=== PATIENT | male | born 1970 | race Caucasian/White ===

== ENCOUNTER 2020-07-01 18:19 | Emergency (ER) | payer MEDICARE, OTHER ==
[2020-07-01 22:16] LABS: HEMOGLOBIN 13.6 gm/dl (14.0-17.5); RED BLOOD COUNT 4.47 M/UL (4.20-5.50); WHITE BLOOD COUNT 13.8 K/UL (4.5-11.0)
[2020-07-01 22:37] LABS: BUN/CREATININE RATIO 19 (0-10)
[2020-07-02] MEDS ORDERED: JOCK ITCH15 GM TP (05:02)
[2020-07-02] MEDS ORDERED: MAGNESIUM400 M2 PO (05:02)
[2020-07-02] MEDS ORDERED: K-DUR TAB 20 M20 MEQ PO (05:02)
[2020-08-07] MEDS ORDERED: LYRICA100 MG PO (07:58)
[2020-08-07] MEDS ORDERED: LINZESS72 MCG PO (07:59)
[2020-08-07] MEDS ORDERED: BUMETANIDE2 MG PO (07:59)
[2020-08-07] MEDS ORDERED: ATENOLOL100 MG PO (07:59)
[2020-08-07] MEDS ORDERED: CRESTOR 10 MG T10 MG PO (08:00)
[2020-08-07] MEDS ORDERED: METFORMIN HCL1000 MG PO (08:02)
[2020-08-07] MEDS ORDERED: VITAMIN D PO (08:02)
[2020-08-07] MEDS ORDERED: PROZAC40 MG PO (08:03)
[2020-08-07] MEDS ORDERED: ALDACTONE25 MG PO (08:03)
[2020-08-07] MEDS ORDERED: LIDOCAINE1 EAC1 TP (08:04)
== END 2020-07-02 05:18 | disposition home or self-care (01) ==
LOC: ER1 18:19
PROVIDERS: Emergency Medicine; Physician Assistant
DX: N48.1 Balanitis (principal); Z20.822 Contact with and (suspected) exposure to COVID-19; E11.9 Type 2 diabetes mellitus without complications; I10 Essential (primary) hypertension; E87.6 Hypokalemia; E83.41 Hypermagnesemia; F17.210 Nicotine dependence, cigarettes, uncomplicated; Z79.84 Long term (current) use of oral hypoglycemic drugs
CPT/HCPCS: 0240U; 71045; 80053; 80307; 81001; 83605; 83735; 85025; 85610; 85652; 85730; 86140; 87040; 87086; 96365; 96375; 99284; J1885; J2405; J3475; J3480; Q9967

== ENCOUNTER → 2020-07-08 | Outpatient (CLI) | payer MEDICARE, OTHER ==
[~2020-07-08] MED LIST: ALDACTONE25 MG PO; ATENOLOL100 MG PO; BUMETANIDE2 MG PO; CRESTOR 10 MG T10 MG PO; JOCK ITCH15 GM TP; K-DUR TAB 20 M20 MEQ PO; LIDOCAINE1 EAC1 TP; LINZESS72 MCG PO; LYRICA100 MG PO; MAGNESIUM400 M2 PO; METFORMIN HCL1000 MG PO; PROZAC40 MG PO; VITAMIN D PO
== END ==
LOC: KOH-I 13:07
DX: I73.9 Peripheral vascular disease, unspecified (principal)
CPT/HCPCS: 93926

== ENCOUNTER → 2020-08-07 | Day surgery (SDC) | payer MEDICARE, OTHER | END | disposition home or self-care (01) | LOC: OR 07:12 | DX: K62.1 Rectal polyp (principal); K64.1 Second degree hemorrhoids; K29.50 Unspecified chronic gastritis without bleeding; K31.9 Disease of stomach and duodenum, unspecified; K21.00 Gastro-esophageal reflux disease with esophagitis, without bleeding; I11.0 Hypertensive heart disease with heart failure; I50.9 Heart failure, unspecified; F32.9 Major depressive disorder, single episode, unspecified; F41.9 Anxiety disorder, unspecified; E11.9 Type 2 diabetes mellitus without complications; E78.00 Pure hypercholesterolemia, unspecified; G47.30 Sleep apnea, unspecified; E66.01 Morbid (severe) obesity due to excess calories; Z68.41 Body mass index [BMI] 40.0-44.9, adult; Z86.010 Personal history of colon polyps; Z79.84 Long term (current) use of oral hypoglycemic drugs; Z79.899 Other long term (current) drug therapy | CPT/HCPCS: 82962; J2704; J7040 ==